=== PATIENT | male | born 1970 | race Caucasian/White ===

== ENCOUNTER 2021-02-11 14:37 | Inpatient (IN) | payer OTHER ==
[~2021-02-11] VITALS: Ht 182.9 cm; Wt 101.6 kg
[2021-02-11 14:40] VITALS: BP 180/101
[2021-02-11 15:01] LABS: ABSOLUTE BASOPHILS 0.1 thou/uL (0.0-0.2); ABSOLUTE EOSINOPHILS 0.1 thou/uL (0.0-0.7); ABSOLUTE LYMPHOCYTES 2.1 thou/uL (0.8-5.3); ABSOLUTE MONOCYTES 0.4 thou/uL (0.0-1.2); ABSOLUTE NEUTROPHILS 5.5 thou/uL (1.6-8.1); BASOPHILS 1.8 %; EOSINOPHILS 1.3 %; HEMATOCRIT 45.7 % (42.0-52.0); HEMOGLOBIN 15.8 gm/dL (14.0-18.0); LYMPHOCYTES 25.2 %; MCH 31.5 pg (26.0-34.0); MCHC 34.6 g/dL (28.0-37.0); MCV 91.1 fL (80.0-100.0); MONOCYTES 5.3 %; MPV 7.6 fl. (7.2-11.1); NUCLEATED RBCS 0 /100WBC; PLATELET COUNT* 286 thou/uL (150-400); POLYS 66.4 %; RBC 5.01 mil/uL (4.50-6.00); RDW-CV 12.8 % (10.5-14.5); WBC 8.3 thou/uL (4.0-11.0)
[2021-02-11 15:10] LABS: CALCIUM 8.5 mg/dL (8.5-10.1); CREATININE 1.3 mg/dL (0.6-1.3); POTASSIUM 3.6 mmol/L (3.5-5.1)
[2021-02-11 15:14] LABS: ALBUMIN 3.7 g/dL (3.4-5.0); MAGNESIUM 2.3 mg/dL (1.8-2.4); TOTAL BILIRUBIN 0.4 mg/dL (<0.1-1.0); TOTAL PROTEIN 7.4 g/dL (6.4-8.2)
[2021-02-11 15:46] LABS: SGOT 25.2 U/L (15-37)
[2021-02-11 15:47] LABS: SGPT 34.8 U/L (30-65)
[2021-02-11 17:03] VITALS: BP 156/92
[2021-02-11 17:22] VITALS: BP 151/93
[2021-02-11 20:00] VITALS: BP 143/74
[2021-02-11 20:19] VITALS: BP 184/100
[2021-02-11 20:25] VITALS: BP 147/95
[2021-02-12] VITALS (19 sets, daily range): BP systolic 120–164; BP diastolic 60–93
[2021-02-12 08:36] LABS: CHOLESTEROL 217 mg/dL (<200); HDL CHOLESTEROL 30 mg/dL (>40); TC:HDL 7.2 Ratio (Not establshd); TRIGLYCERIDE 661 mg/dL (<150); VLDL 132 mg/dL (<40)
[2021-02-12 08:37] LABS: LDL CHOLESTEROL ND mg/dL (<100); SERUM ASSESSMENT Clear
--- NOTE | 2021-02-12 16:05 | EKG ---
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
--- NOTE | 2021-02-12 16:08 | EKG ---
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: : 1970 Requested By: Marilyn Spain Order Number: [id number] Reading MD: Mandeep Lay Measurements Intervals [place] Rate: 74 P: 47 PA: 189 QRS: 29 QRSD: 100 T: 15 QT: 384 QTc: 426 Interpretive Statements Sinus rhythm ST elev, probable normal early repol pattern Baseline wander in lead(s) V3 Compared to ECG 02/11/2021 14:42:17 ST (T wave) deviation now present Electronically Signed On 02-12-2021 16:08:06 CDT by Mandeep Lay [email or web address] <ELECTRONICALLY SIGNED> By: Mandeep Lay MD, FACC 02/12/21 1608 14 14 Mandeep Lay MD, FACC /EPI
--- NOTE | 2021-02-12 16:21 | EKG ---
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
[2021-02-13 02:06] LABS: GLYCOHEMOGLOBIN (HGB A1C) 5.6 % (4.8-5.6)
[2021-02-13 04:54] VITALS: BP 137/90
[2021-02-13 05:23] LABS: HEMATOCRIT 42.4 % (42.0-52.0); HEMOGLOBIN 14.3 gm/dL (14.0-18.0); MCH 30.9 pg (26.0-34.0); MCHC 33.9 g/dL (28.0-37.0); MCV 91.3 fL (80.0-100.0); MPV 7.7 fl. (7.2-11.1); RBC 4.64 mil/uL (4.50-6.00); RDW-CV 12.8 % (10.5-14.5); WBC 6.4 thou/uL (4.0-11.0)
[2021-02-13 05:41] LABS: CALCIUM 8.5 mg/dL (8.5-10.1); CREATININE 1.2 mg/dL (0.6-1.3); MAGNESIUM 2.2 mg/dL (1.8-2.4); TOTAL BILIRUBIN 0.3 mg/dL (<0.1-1.0); TOTAL PROTEIN 6.3 g/dL (6.4-8.2)
[2021-02-13 08:00] VITALS: BP 149/87
[2021-02-13] MEDS ORDERED: EFFIENT10 MG PO (08:52)
[2021-02-13] MEDS ORDERED: NITROGLYCERIN0.4 MG SUBLING (08:52)
[2021-02-13] MEDS ORDERED: LIPITOR 40 MG T40 M1 PO (08:52)
[2021-02-13] MEDS ORDERED: BAYER CHEWABLE81 MG PO (08:53)
[2021-02-13] MEDS ORDERED: METOPROLOL TART25 MG PO (08:53)
[2021-02-13] MEDS ORDERED: LISINOPRIL10 MG PO (08:53)
--- NOTE | 2021-02-13 09:12 | CARD ---
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 Wendy Mitchell Reeves, Adam RTR Monitor, Kusum Mccormick RN RN, Mandeep Lay [employer]iodiesel Division Manager, Savannah Portillo RN mixer pigment Performed Left Heart Cath w/or w/o Coronaries [id number] [facility] Place w/wo Plasty Single RCA [id number] [facility] Place w/wo Plasty Single GOVIND [id number] Hemostasis with Hemoband Indication Unstable angina , Chest pain Risk Factors Hypertension Admission/Lab Medications/Medications given during procedure Glycoprotein IllbIlla Inhibitors, Heparin Unfract., Fentanyl IV 25 mcg, Midazolam (Versed) IV 2 mg, Lidocaine Subcut 4 ml, Nitroglycerin IA 200 mcg, Verapamil IA 2.5 mg, Verapamil IA 2.5 mg, Heparin IV 6000 units, Effient PO 60 mg Procedure Narrative The patient was brought electively to the Cardiac Catheterization Laboratory and was prepped and draped in a sterile manner. The right wrist was infiltrated with 2% Lidocaine subcutaneous anesthesia. IV conscious sedation was used throughout procedure with appropriate monitoring and was performed in the presence of a registered nurse who was an independent trained observer [place] [address] CARDIAC CATH REPORT Name: BISI BROWN Room: [address] IN [facility]#: [id number] Admission: 02/11/21 Attend Phys: Marilyn Spain MD Discharge: Date of : 66 Report #: [id number] performing the procedure. A Slender Glidesheath sheath was inserted into the right radial artery. Coronary angiography was performed using coronary diagnostic catheters. The right coronary system was accessed and visualized with a Diagnostic JR4 6Fr catheter. The left coronary system was accessed and visualized with a Diagnostic JL4 6Fr catheter. The left ventricle was accessed and visualized with a Diagnostic Pigtail 6Fr catheter. Left ventricular/Aortic Valve gradient assessed via catheter pullback. Left ventriculogram was performed in SENIOR projection. Closure device was deployed with a 6 Fr vascband. The patient tolerated the procedure well and there were no complications associated with the procedure. There was no hematoma. Intraoperative Conscious Sedation Sedation start time: 1434 Case end Time: 1520 Fentanyl 25 mcg Versed 2 mg Fluoro Time: 7.9 minutes Dose: DAP 84213 cGycm2 1391.29 mGy Contrast Type and Amount: Visipaque 160 mL Coronary Angiography The patient's coronary anatomy is right dominant. Diagnostic Cath Left Main 0% stenosis LAD 0% stenosis Diagonal 1 medium sized vessel with ostial 80% stenosis Circumflex 0% stenosis OM3 medium sized vessel with 80% proximal stenosis Right Coronary proximal 30% stenosis and distal 99% stenosis with thrombus R PDA 40% proximal stenosis RPLV 80% proximal stenosis Left Ventriculography The left ventricular ejection fraction is estimated to be 60-65%. Left ventricular wall motion abnormalities are not present. There is no mitral insufficiency. Hemodynamics The aortic pressure is 103/66 mmHg with a mean of 57 mmHg. The left ventricular pressure is 100/10 mmHg with a mean of mmHg. The left ventricular end diastolic pressure is 12 mmHg. [place] [address] CARDIAC CATH REPORT Name: HILARY BROWNETH Room: [address]#: [id number] Admission: 02/11/21 Attend Phys: Marilyn Spain MD Discharge: Date of : 66 Report #: [id number] across the aortic valve upon pullback. Pullback from the left ventricle to the aorta revealed no gradient across the aortic valve. PCI Technique Lesion Anticoagulation was achieved with Heparin. bolus of IV aggrastat given Percutaneous coronary intervention was performed on the distal right coronary artery. The lesion stenosis prior to intervention was 99% with DIMITRIOS 3 flow. A 6F JR 4.0 Guide Catheter was used to engage the Right ostium. A IG: BMW 190cm Interventional Guidewire was used to cross the lesion. BALLOON DILATION A Balloon catheter Euphora SC 2.5x15mm was inserted and inflated up to 20.00atm for 21seconds. Repeat angiography revealed the following post-dilatation results: 70% stenosis. STENT DEPLOYMENT A drug-eluting stent Colton RX Stent 3.5X38mm was inserted and inflated up to 12.00atm for 11seconds. Repeat angiography revealed the following post-stent deployment results: 0% stenosis. Additional Inflation: 14.00atm for 19seconds. Additional Inflation: 15.00atm for 16seconds. Final angiography reveals 0 % stenosis with DIMITRIOS 3 flow. PCI Technique Lesion 2 Percutaneous Coronary Intervention was performed on the first right posterior lateral segment. Percutaneous coronary intervention was performed on the first right posterior lateral segment. The lesion stenosis prior to intervention was 80% with DIMITRIOS 3 flow. A 6F JR 4.0 Guide Catheter was used to engage the Right ostium. A IG: BMW 190cm Interventional Guidewire was used to cross the lesion. Stent Deployment A drug-eluting stent Colton RX Stent 2.08D46rw was inserted and inflated up to 9.00atm for 15seconds. Repeat angiography revealed the following post-stent deployment results: 0% stenosis. Additional Inflation: 16.00atm for 19seconds. Additional Inflation: 20.00atm for 10seconds. Final angiography reveals 0 % stenosis with DIMITRIOS 3 [place] [address] CARDIAC CATH REPORT Name: BISI BROWN Room: [address] IN M.R.#: [id number] Admission: 02/11/21 Attend Phys: Marilyn Spain MD Discharge: Date of : 66 Report #: [id number] 1. 99% stenosis of the distal RCA and 80% stenosis of the posterolateral branch with thrombus noted 2. successful placement of 2 drug eluting stents in the distal RCA. 3. LVEF 60-65% Recommendations Cardiac Rehabilitation Referral Aggressive Medical Therapy Medications Administered Prasugrel <ELECTRONICALLY SIGNED> By: Mandeep Lay MD, [facility] 02/13/21911 1 1aMndeep Lay MD, FACC /INF
[2021-02-13 11:24] VITALS: BP 149/87
[2021-02-13 11:45] VITALS: BP 149/87
== END 2021-02-13 12:30 | disposition home or self-care (01) | DRG 247 ==
LOC: M.ERS 14:37 → M.TBA-ER 15:40 → M.2W 15:40
PROVIDERS: Emergency Medicine Emergency Medical Services; Registered Nurse; ADMIT Internal Medicine; ATTEND Internal Medicine
DX: I25.110 Atherosclerotic heart disease of native coronary artery with unstable angina pectoris (principal); I10 Essential (primary) hypertension; F17.220 Nicotine dependence, chewing tobacco, uncomplicated; E78.5 Hyperlipidemia, unspecified; R73.9 Hyperglycemia, unspecified; Z20.822 Contact with and (suspected) exposure to COVID-19; Z28.21 Immunization not carried out because of patient refusal